=== PATIENT | female | born 1940 | race Caucasian/White ===

== ENCOUNTER 2020-04-09 11:00 | Observation (INO) ==
[~2020-04-09 11:00] MED LIST: Buffered Lidocaine 1% SYRIN 1 ml INTRADERM ONE; Lactated Ringers 1000 ml BAG 1,000 ML IV SCH
[2020-04-09] MEDS ORDERED: ceFAZolin 2 GM PREMIX 2 GM/50 ML BAG ONE (11:23)
[2020-04-09] MEDS ORDERED: Buffered Lidocaine 1% SYRIN 1 ml INTRADERM ONE (11:23)
[2020-04-09 12:18] LABS: BUN/Creatinine Ratio 19.7 (8-20); Calcium 9.4 mg/dL (8.6-10.3); EGFR African American 45.1 (>60); EGFR Non-African American 37.3 (>60); Potassium 4.9 mmol/L (3.5-5.0)
[2020-04-09] MEDS ORDERED: ROPIVACAINE 5 MG/ML 30 ML BTL (0.5%) ONE ×2 (12:36→12:51)
[2020-04-09] MEDS ORDERED: Bupivacaine 0.5% SDV PF 30ML VIAL ONE (12:51)
[2020-04-09] MEDS ORDERED: Lidocaine 2% PF 5 ML VIAL ONE (12:51)
[2020-04-09] MEDS ORDERED: fentaNYL 100 mcg/2 ml 50 MCG/ML VIAL ONE ×3 (12:51→16:41)
[2020-04-09] MEDS ORDERED: fentaNYL 250 mcg/5 ml 50 MCG/ML 5 ml VIAL (250 MCG) ONE (13:34)
[2020-04-09] MEDS ORDERED: Phenylephrine 40 mcg/mL 10mL (400mcg) SYRINGE ONE (13:39)
[2020-04-09] MEDS ORDERED: Ondansetron 4 mg VIAL 2 MG/ML 2 ml VIAL IV PRN ×2 (14:05→14:43)
[2020-04-09] MEDS ORDERED: Naloxone 0.4 mg VIAL 0.4 mg/ml 1 ml VIAL IV PRN (14:05)
[2020-04-09] MEDS ORDERED: Bacitracin OINTMENT TUBE ONE (14:07)
[2020-04-09] MEDS ORDERED: HYDROmorphone 1 MG/1 ML SYRINGE ONE ×2 (14:32→16:09)
[2020-04-09] MEDS ORDERED: Morphine 2 MG/ML SYRINGE IV PRN (14:43)
[2020-04-09] MEDS ORDERED: Magnesium Hydroxide LIQ 30 ML UDC PO PRN (14:43)
[2020-04-09] MEDS ORDERED: diPHENhydraMINE IV 50 MG/ML 1 ml VIAL (BENADRYL) IV PRN (14:43)
[2020-04-09] MEDS ORDERED: Lactulose 30 ml UDC PO PRN (14:43)
[2020-04-09] MEDS ORDERED: Ondansetron ODT 4 mg TAB 4 MG TAB PO PRN (14:43)
[2020-04-09] MEDS ORDERED: diPHENhydraMINE 25 mg TAB PO PRN (14:43)
[2020-04-09] MEDS ORDERED: EPHEDrine (Pressors) 50 MG/ML VIAL ONE (15:21)
[2020-04-09] MEDS ORDERED: Ondansetron 4 mg VIAL 2 MG/ML 2 ml VIAL ONE (15:29)
[2020-04-09] MEDS: HYDROmorphone 1 MG/1 ML SYRINGE IV PRN ×5 (16:09→17:07)
[2020-04-09] MEDS: fentaNYL 100 mcg/2 ml 50 MCG/ML VIAL IV PRN ×5 (16:12→16:47)
[2020-04-09] MEDS ORDERED: hydrALAZINE 20 mg/ml 1 ML Vial IV IV SLOW PU PRN (16:47)
[2020-04-09] MEDS ORDERED: hydrALAZINE 20 mg/ml 1 ML Vial IV ONE (17:10)
[2020-04-09] MEDS ORDERED: oxyCODONE/Acetamin 5/325 mg TAB PO PRN (17:34)
[2020-04-09] MEDS: Sulfamethox/Trimethoprim DS TAB 800/160 mg PO SCH (18:48)
[2020-04-09] MEDS: Lactated Ringers 1000 ml BAG 1,000 ML IV SCH (18:49)
[2020-04-09 23:01] LABS: Hematocrit 34 % (35-47)
[2020-04-09] MEDS: Magnesium Hydroxide LIQ 30 ML UDC PO SCH (23:59)
[2020-04-09] MEDS: ceFAZolin 1 GM ADVAN 1 GM in NS 0.9% 50 ML 50 ML IVPB SCH (23:59)
[2020-04-10 05:49] LABS: Hematocrit 31 % (35-47); Hemoglobin 10.2 g/dL (12.0-16.0); Mean Platelet Volume 7.4 fL (7.4-10.4); Platelet Count 171 10^3/uL (150-450)
[2020-04-10] MEDS: Lactated Ringers 1000 ml BAG 1,000 ML IV SCH (06:01)
[2020-04-10] MEDS: ceFAZolin 1 GM ADVAN 1 GM in NS 0.9% 50 ML 50 ML IVPB SCH ×2 (06:07→13:34)
[2020-04-10 06:13] LABS: BUN/Creatinine Ratio 17.6 (8-20); Calcium 8.5 mg/dL (8.6-10.3); EGFR African American 59.4 (>60); EGFR Non-African American 49.1 (>60); Potassium 4.7 mmol/L (3.5-5.0)
[2020-04-10] MEDS: Magnesium Hydroxide LIQ 30 ML UDC PO SCH ×3 (09:15→21:34)
[2020-04-10] MEDS: Cholecalciferol (VIT D3) 1,000 unit TAB PO SCH (09:17)
[2020-04-10] MEDS: Vitamin THERAPEUTIC TAB PO SCH (09:17)
[2020-04-10] MEDS: Sulfamethox/Trimethoprim DS TAB 800/160 mg PO SCH (17:25)
[2020-04-11 05:46] LABS: Hematocrit 32 % (35-47); Hemoglobin 10.3 g/dL (12.0-16.0); Platelet Count 160 10^3/uL (150-450)
[2020-04-11] MEDS: Magnesium Hydroxide LIQ 30 ML UDC PO SCH ×2 (09:22→21:37)
[2020-04-11] MEDS: Vitamin THERAPEUTIC TAB PO SCH (09:23)
[2020-04-11] MEDS: Cholecalciferol (VIT D3) 1,000 unit TAB PO SCH (09:25)
[2020-04-11] MEDS: Sulfamethox/Trimethoprim DS TAB 800/160 mg PO SCH (17:27)
[2020-04-12 07:55] LABS: Hematocrit 29 % (35-47); Hemoglobin 9.4 g/dL (12.0-16.0); Platelet Count 179 10^3/uL (150-450)
[2020-04-12 08:18] VITALS: BP 154/66
[2020-04-12] MEDS: Vitamin THERAPEUTIC TAB PO SCH (09:52)
[2020-04-12] MEDS: Cholecalciferol (VIT D3) 1,000 unit TAB PO SCH (09:53)
[2020-04-12] MEDS: Magnesium Hydroxide LIQ 30 ML UDC PO SCH (09:54)
== END 2020-04-12 11:45 | disposition home or self-care (01) ==
LOC: SSU 11:00 → OR 11:00 → SSU 04-10 23:36
PROVIDERS: ADMIT Orthopaedic Surgery Adult Reconstructive Orthopaedic Surgery; ATTEND Orthopaedic Surgery Adult Reconstructive Orthopaedic Surgery

== ENCOUNTER 2023-04-14 05:33 | Inpatient (IN) ==
[2023-04-14 06:20] LABS: Hematocrit 42.5 % (35-45); Hemoglobin 14.3 g/dL (11.5-14.3); Mean Corpuscular Hemoglobin 30.6 pg (27-33); Mean Corpuscular Hgb Conc 33.7 g/dL (31-36); Mean Corpuscular Volume 90.7 fL (80-97); Mean Platelet Volume 7.4 fL (7.5-11.2); Platelet Count 332 10^3/uL (150-450); Red Blood Count 4.68 10^6/uL (3.63-4.92); Red Cell Distribution Width 13.2 % (12-17); White Blood Count 14.1 10^3/uL (3.8-11.8)
[2023-04-14] MEDS ORDERED: Lactated Ringers 1000 ml BAG 1,000 ML IV ONE ×4 (06:34→11:11)
[2023-04-14 06:38] LABS: Albumin 4.6 g/dL (3.2-5.2); Albumin/Globulin Ratio 1.4 (1-3); Calcium 9.7 mg/dL (8.6-10.3); Creatinine, Serum 1.11 mg/dL (0.51-0.95); Globulin 3.4 g/dL (2-4); Potassium 3.5 mmol/L (3.5-5.0); Total Bilirubin 0.9 mg/dL (0.2-1.0); eGFR CKD-EPI 49.9 (>60)
[2023-04-14 07:11] LABS: C Reactive Protein 1.08 mg/L (<8.01)
[2023-04-14 07:33] LABS: ABS Basophils 0.1 10^3/uL (0.0-0.1); ABS Monocytes 1.4 10^3/uL (0.0-0.9); ABS Neutrophils 6.6 10^3/uL (1.5-7.6); ABS Nucleated RBC 0.01 10^3/ul; Eosinophil % 0.3 %; Lymphocyte % 42.7 %; Nucleated Red Blood Cells % 0.1 %/100WBC (0.0-0.8)
[2023-04-14 07:55] LABS: High Sensitivity Troponin 1 Hr 14 pg/mL (<15)
[2023-04-14] MEDS ORDERED: oxyCODONE/Acetamin 5/325 mg TAB PO ONE (08:46)
[2023-04-14 09:08] LABS: Urine Appearance Cloudy; Urine Bilirubin Negative (Negative); Urine Blood Negative (Negative); Urine Color Yellow; Urine Glucose Negative (Negative); Urine Ketones Negative (Negative); Urine Nitrite Negative (Negative); Urine Protein Negative (Negative); Urine Specific Gravity 1.009 (1.002-1.030); Urine Urobilinogen Negative (Negative)
[2023-04-14] MEDS ORDERED: cefTRIAXone 1 gm/50 mL D5W 1 GM/50 ML BAG IV ONE (09:16)
[2023-04-14 09:36] LABS: Urine Bacteria 1+ (Absent); Urine Red Blood Cell 2+(6-10/hpf) (Absent); Urine Squamous Epithelial Cell Present (Absent); Urine White Blood Cell 2+(11-20/hpf) (Absent)
[2023-04-14] MEDS ORDERED: Metoprolol Tartrate 5 mg VIAL 5 ml VIAL (1 mg/ml) IV ONE ×3 (10:54→11:45)
[2023-04-14] MEDS ORDERED: Potassium Chlor 20 meq TAB.ER PO ONE (11:03)
[2023-04-14] MEDS ORDERED: Metoprolol Tartrate 5 mg VIAL 5 ml VIAL (1 mg/ml) IV PRN ×2 (11:49→12:16)
[2023-04-14] MEDS ORDERED: HYDROcodone/Acetamin 10/325 TAB (NF) PO PRN (12:35)
[2023-04-14 13:09] LABS: Magnesium 1.6 mg/dL (1.9-2.7)
[2023-04-14] MEDS ORDERED: Magnesium Sulf 4 GM/100 ML IV 4,000 MG/100 ML BAG IVPB ONE (13:13)
[2023-04-14] MEDS ORDERED: Ondansetron 4 mg VIAL 2 MG/ML 2 ml VIAL IV PRN (14:11)
[2023-04-14] MEDS ORDERED: Enoxaparin 40 MG/0.4 ML SYR SUBCUT SCH (15:00)
[2023-04-14] MEDS: DULoxetine DR 30 mg CAP PO SCH (16:05)
[2023-04-15 05:56] LABS: Hematocrit 38.6 % (35-45); Mean Corpuscular Hemoglobin 30.4 pg (27-33); Mean Corpuscular Hgb Conc 33.5 g/dL (31-36); Mean Corpuscular Volume 90.7 fL (80-97); Mean Platelet Volume 7.8 fL (7.5-11.2); Platelet Count 262 10^3/uL (150-450); Red Blood Count 4.26 10^6/uL (3.63-4.92); Red Cell Distribution Width 13.2 % (12-17); White Blood Count 10.7 10^3/uL (3.8-11.8)
[2023-04-15 06:13] LABS: Calcium 8.9 mg/dL (8.6-10.3); Creatinine, Serum 1.08 mg/dL (0.51-0.95); Magnesium 2.2 mg/dL (1.9-2.7); eGFR CKD-EPI 51.6 (>60)
[2023-04-15] MEDS: cefTRIAXone 1 gm/50 mL D5W 1 GM/50 ML BAG IV SCH (09:11)
[2023-04-15] MEDS: DULoxetine DR 30 mg CAP PO SCH (09:16)
[2023-04-15] MEDS: Nystatin TOP POWDER 15 GM BTL TOPICAL SCH ×2 (12:35→21:17)
[2023-04-16 06:00] LABS: Hematocrit 38.5 % (35-45); Hemoglobin 12.8 g/dL (11.5-14.3); Mean Corpuscular Hemoglobin 30.4 pg (27-33); Mean Corpuscular Hgb Conc 33.3 g/dL (31-36); Mean Corpuscular Volume 91.3 fL (80-97); Mean Platelet Volume 7.9 fL (7.5-11.2); Platelet Count 256 10^3/uL (150-450); Red Blood Count 4.22 10^6/uL (3.63-4.92); Red Cell Distribution Width 13.5 % (12-17); White Blood Count 10.7 10^3/uL (3.8-11.8)
[2023-04-16 06:23] LABS: Creatinine, Serum 1.05 mg/dL (0.51-0.95); Magnesium 1.8 mg/dL (1.9-2.7); Potassium 4.2 mmol/L (3.5-5.0); eGFR CKD-EPI 53.4 (>60)
[2023-04-16] MEDS ORDERED: Magnesium Sulfate 2 gm BAG 2 GM/50 ML BAG IVPB ONE (07:00)
[2023-04-16] MEDS: cefTRIAXone 1 gm/50 mL D5W 1 GM/50 ML BAG IV SCH (09:17)
[2023-04-16] MEDS: DULoxetine DR 30 mg CAP PO SCH (09:20)
[2023-04-16] MEDS: Nystatin TOP POWDER 15 GM BTL TOPICAL SCH (09:28)
[2023-04-16] MEDS ORDERED: Sulfur Hexaflouride MICROSPHR 25 MG VIAL ONE (10:29)
[2023-04-16 14:48] VITALS: BP 139/70
== END 2023-04-16 17:10 | disposition home or self-care (01) | DRG 872 ==
LOC: ED 05:33 → EDHOLD 10:19 → SUATTDRO 10:19 → SSU 13:07
PROVIDERS: ADMIT Internal Medicine; ATTEND Internal Medicine

== ENCOUNTER 2024-04-10 11:50 | Observation (INO) ==
[2024-04-10 12:27] LABS: Venous Bicarbonate HCO3 26.7 mmol/L (24-28)
[2024-04-10 12:36] LABS: ABS Lymphocytes 3.5 10^3/uL (1.0-4.8); ABS Monocytes 0.4 10^3/uL (0.0-0.9); ABS Neutrophils 6.4 10^3/uL (1.5-7.6); Eosinophil % 0.4 %; Hematocrit 41.5 % (35-45); Lymphocyte % 33.8 %; Mean Corpuscular Hemoglobin 30.4 pg (27-33); Mean Corpuscular Hgb Conc 33.8 g/dL (31-36); Mean Corpuscular Volume 89.9 fL (80-97); Platelet Count 245 10^3/uL (150-450); Red Blood Count 4.62 10^6/uL (3.63-4.92); Red Cell Distribution Width 14.5 % (12-17); White Blood Count 10.4 10^3/uL (3.8-11.8)
[2024-04-10 12:59] LABS: ALT 21 U/L (7-52); AST 24 U/L (13-39); Albumin 4.4 g/dL (3.5-5.7); Albumin/Globulin Ratio 1.6 (1-3); Alcohol, S < 13 mg/dL (<13); Alkaline Phosphatase 101 U/L (35-149); Anion Gap 15 mmol/L (2-16); Blood Urea Nitrogen 17 mg/dL (6-24); C Reactive Protein 2.84 mg/L (<8.01); CO2 Carbon Dioxide 24 mmol/L (22-32); Calcium 9.5 mg/dL (8.6-10.3); Chloride 102 mmol/L (101-111); Creatinine, Serum 1.22 mg/dL (0.51-0.95); Globulin 2.8 g/dL (2-4); Glucose 148 mg/dL (70-100); Potassium 4.3 mmol/L (3.5-5.0); Sodium 141 mmol/L (135-145); Total Bilirubin 0.6 mg/dL (0.2-1.0); Total Protein 7.2 g/dL (6.4-8.9); eGFR CKD-EPI 44.3 (>60)
[2024-04-10 13:02] LABS: Urine Appearance Clear; Urine Bilirubin Negative (Negative); Urine Blood Negative (Negative); Urine Color Yellow; Urine Glucose Negative (Negative); Urine Ketones Negative (Negative); Urine Nitrite 2+ (Negative); Urine Protein 1+ (>=30 mg/dL) (Negative); Urine Specific Gravity 1.019 (1.002-1.030); Urine Urobilinogen Negative (Negative); Urine pH 6.5 (5.0-8.0)
[2024-04-10 13:07] LABS: Urine Bacteria 3+ /HPF (Absent); Urine Red Blood Cell 1+(3-5/hpf) /HPF (0-Trace); Urine Squamous Epithelial Cell Present /HPF (Absent); Urine White Blood Cell 2+(11-20/hpf) /HPF (0-Trace)
[2024-04-10] MEDS: cefTRIAXone 2 gm/50 mL D5W 2 GM/50 ML BAG IV ONE (13:36)
[2024-04-10] MEDS: Lactated Ringers 1000 ml BAG 1,000 ML IV ONE ×2 (13:37→15:05)
[2024-04-10] MEDS ORDERED: Polyethylene Glycol 3350 17 GM PACKET PO PRN (14:16)
[2024-04-10] MEDS ORDERED: Senna TAB 8.6 mg TAB PO PRN (14:16)
[2024-04-11 06:07] LABS: Hemoglobin 13.4 g/dL (11.5-14.3); Mean Corpuscular Hemoglobin 30.2 pg (27-33); Mean Corpuscular Hgb Conc 33.5 g/dL (31-36); Mean Corpuscular Volume 90.4 fL (80-97); Mean Platelet Volume 8.2 fL (7.5-11.2); Platelet Count 255 10^3/uL (150-450); Red Blood Count 4.42 10^6/uL (3.63-4.92); Red Cell Distribution Width 14.6 % (12-17); White Blood Count 12.9 10^3/uL (3.8-11.8)
[2024-04-11 06:24] LABS: Calcium 9.7 mg/dL (8.6-10.3); Creatinine, Serum 1.18 mg/dL (0.51-0.95); Magnesium 1.7 mg/dL (1.9-2.7); Potassium 4.3 mmol/L (3.5-5.0); eGFR CKD-EPI 46.1 (>60)
[2024-04-11 07:54] LABS: ABS Eosinophils 0.1 10^3/uL (0.0-0.5); ABS Lymphocytes 5.3 10^3/uL (1.0-4.8); ABS Monocytes 0.7 10^3/uL (0.0-0.9); ABS Neutrophils 6.6 10^3/uL (1.5-7.6); ABS Nucleated RBC 0.01 10^3/ul; Lymphocyte % 41.4 %; Nucleated Red Blood Cells % 0.1 %/100WBC (0.0-0.8)
[2024-04-11] MEDS: Cholecalciferol (VIT D3) 1,000 unit TAB PO SCH (09:01)
[2024-04-11] MEDS: Magnesium Sulfate 2 gm BAG 2 GM/50 ML BAG IVPB ONE (09:01)
[2024-04-11] MEDS: DULoxetine DR 30 mg CAP PO SCH (09:01)
[2024-04-11] MEDS: cefTRIAXone 1 gm/50 mL D5W 1 GM/50 ML BAG IV SCH (10:46)
[2024-04-11] MEDS ORDERED: cefTRIAXone 1 gm/50 mL D5W 1 GM/50 ML BAG IV SCH (11:00)
[2024-04-12 06:20] LABS: ABS Eosinophils 0.2 10^3/uL (0.0-0.5); ABS Lymphocytes 4.6 10^3/uL (1.0-4.8); ABS Monocytes 0.6 10^3/uL (0.0-0.9); ABS Neutrophils 4.9 10^3/uL (1.5-7.6); ABS Nucleated RBC 0.01 10^3/ul; Eosinophil % 1.6 %; Hematocrit 38.1 % (35-45); Hemoglobin 12.7 g/dL (11.5-14.3); Lymphocyte % 44.8 %; Mean Corpuscular Hemoglobin 30.1 pg (27-33); Mean Corpuscular Hgb Conc 33.2 g/dL (31-36); Mean Corpuscular Volume 90.6 fL (80-97); Mean Platelet Volume 8.3 fL (7.5-11.2); Nucleated Red Blood Cells % 0.1 %/100WBC (0.0-0.8); Platelet Count 199 10^3/uL (150-450); Red Blood Count 4.21 10^6/uL (3.63-4.92); Red Cell Distribution Width 14.6 % (12-17); White Blood Count 10.4 10^3/uL (3.8-11.8)
[2024-04-12 06:40] LABS: Calcium 9.5 mg/dL (8.6-10.3); Creatinine, Serum 1.18 mg/dL (0.51-0.95); Magnesium 1.7 mg/dL (1.9-2.7); Potassium 4.3 mmol/L (3.5-5.0); eGFR CKD-EPI 46.1 (>60)
[2024-04-12] MEDS: Magnesium Sulfate 2 gm BAG 2 GM/50 ML BAG IVPB ONE (09:05)
[2024-04-12 09:36] VITALS: BP 136/84
== END 2024-04-12 14:10 | disposition home or self-care (01) ==
LOC: EDHOLD 11:50 → ED 11:50 → SUATTDRO 14:17 → MED 16:18
PROVIDERS: ADMIT Internal Medicine; ATTEND Internal Medicine